=== PATIENT | male | born 1960 | race Caucasian/White ===

== ENCOUNTER 2018-06-02 08:17 | Emergency (ER) | payer OTHER ==
[2018-06-02 08:35] VITALS: BP 148/95; PULSE 90; RESP 16; TEMP 97.9; O2SAT 98
[2018-06-02 09:15] LABS: APPEARANCE,URINE Clear; BILIRUBIN,URINE NEGATIVE (NEGATIVE); COLOR,URINE Yellow; GLUCOSE, URINE (UA) NEGATIVE (NEGATIVE); KETONES,URINE NEGATIVE (NEGATIVE); LEUKOCYTE ESTERASE ,URINE NEGATIVE (NEGATIVE); NITRATE,URINE NEGATIVE (NEGATIVE); OCCULT BLOOD,URINE NEGATIVE (NEG-TRACE); PH,URINE 5.5; UROBILINOGEN,URINE 0.2 (0.2-1.0 EU)
[2018-06-02] MEDS ORDERED: KETOROLAC TROMETHAMINE 30 MG/ML SOL IM ONE (09:15)
[2018-06-02] MEDS ORDERED: KETOROLAC TROMETHAMINE 30 MG/ML SOL ONE (09:16)
[2018-06-02 09:19] LABS: BACTERIA RARE (< 1+); CRYSTALS NEGATIVE (0-3 AVE/HPF); EPITHELIAL CELLS 0-2 (SQUAMOUS); RBC,URINE 0-2 (0-3AV/HPF); WBC,URINE 0-2 (0-5AV/HPF)
[2018-06-02] MEDS ORDERED: CARISOPRODOL 350 MG TAB PO PRN (10:31)
== END 2018-06-02 10:36 | disposition home or self-care (01) | DRG 552 ==
LOC: ED 08:17
DX: M54.6 Pain in thoracic spine (principal)
CPT/HCPCS: 72070; 72120; 81001; 96372; 99283; 99284; J1885